=== PATIENT | female | born 1995 | race Caucasian/White ===

== ENCOUNTER 2017-02-23 16:21 | Emergency (ER) | payer OTHER ==
[~2017-02-23] VITALS: Ht 162.6 cm; Wt 82.2 kg
[~2017-02-23 16:21] MED LIST: ACETAMINOPHEN-1 EAC1 PO; ADDERALL XR 3030 MG PO; AZITHROMYCIN250 MG1 PO; DOXYCYCLINE HY100 MG PO; ENDOCET 5-3251 EACH PO; IBUPROFEN800 MG PO; MOTRIN800 MG PO; NOHOMEMEDS; ORSYTHIA1 EACH PO
[2017-02-23 17:01] LABS: EOSINOPHIL (%) 1.8 % (0-5); EOSINOPHIL COUNT 0.2 K/uL (0-0.3); HEMATOCRIT 42.1 % (36.0-46.0); IMMATURE GRANULOCYTE (%) 0.8 % (0.0-0.7); IMMATURE GRANULOCYTE COUNT 0.1 K/uL; INSTRUMENT ABS NEUTROPHIL CT 7.1 K/uL; LYMPHOCYTE COUNT 1.7 K/uL (1.0-2.8); MCH 33.1 PG (29.0-34.0); MCHC 34.7 G/DL (30.0-36.0); MCV 95.5 FL (83-99); MEAN PLAT.VOLUME 10.4 uM^3 (9.5-12.4); MONOCYTE (%) 5.4 % (3-12); MONOCYTE COUNT 0.5 K/uL (0-0.8); NEUTROPHIL (%) 74.1 % (45-76); NEUTROPHIL COUNT 7.1 K/uL (1.8-6.4); PLATELET COUNT 286 K/uL (156-360); RBC DIS.WIDTH-CV 11.8 % (11.8-14.6); RED BLOOD COUNT 4.41 M/uL (3.80-5.20); WHITE BLOOD COUNT 9.6 K/uL (4.1-10.2)
[2017-02-23 17:10] LABS: AMYLASE 51 IU/L (1-118); CHLORIDE 107 mEq/L (99-109); POTASSIUM 3.3 mEq/L (3.7-5.4); SODIUM 143 mEq/L (136-147)
[2017-02-23 17:12] LABS: GLUCOSE 114 mg/dL (70-99)
[2017-02-23 17:13] LABS: ANION GAP 9 MEQ/L (2-14)
[2017-02-23 17:15] LABS: SERUM ETHYL ALCOHOL < 10 mg/dL
[2017-02-23 17:16] LABS: GFR ESTIMATE (CALCULATED) > 59 mL/min/; UREA NITROGEN (BUN) 9 mg/dL (9-23)
[2017-02-23 17:19] LABS: LIPASE 21 U/L (1.0-51.0)
[2017-02-23 17:24] LABS: QUANTITATIVE HCG < 4.0 MIU/ML
[2017-02-23 19:30] VITALS: BP 112/58
== END 2017-02-23 19:36 | disposition designated cancer center or children's hospital, planned readmission (85) ==
LOC: EME → TRA 16:21 → EME 16:21 → TRA 19:36
PROVIDERS: Emergency Medicine
PROC: 3E0234Z Introduction of Serum, Toxoid and Vaccine into Muscle, Percutaneous Approach (ICD-10-PCS; principal; 2017-02-23)
DX: T20.00XA Burn of unspecified degree of head, face, and neck, unspecified site, initial encounter (principal); T22.011A Burn of unspecified degree of right forearm, initial encounter; X03.8XXA Other exposure to controlled fire, not in building or structure, initial encounter; Y93.H9 Activity, other involving exterior property and land maintenance, building and construction; Z23 Encounter for immunization
CPT/HCPCS: 80048; 81003; 82150; 83690; 84702; 85025; 86900; 86901; 99281; 99285; G0480; J7030

== ENCOUNTER 2017-02-27 12:15 | Emergency (ER) | payer OTHER ==
[~2017-02-27] VITALS: Ht 162.6 cm; Wt 81.7 kg
[2017-02-27] MEDS ORDERED: MOTRIN800 MG PO (13:48)
[2017-02-27 14:33] VITALS: BP 120/77
== END 2017-02-27 14:34 | disposition home or self-care (01) ==
LOC: EME 12:15
DX: T23.001D Burn of unspecified degree of right hand, unspecified site, subsequent encounter (principal); X03 Exposure to controlled fire, not in building or structure
CPT/HCPCS: 99281; 99283